=== PATIENT | female | born 1970 | race Caucasian/White ===

== ENCOUNTER 2021-02-06 07:59 | Day surgery (SDC) | payer MEDICAID, SELFPAY ==
[~2021-02-06] VITALS: Ht 154.9 cm; Wt 113.4 kg
[2021-02-06] MEDS ORDERED: SIMETHICONE 40 MG/0.6 ML ML ONE (10:07)
[2021-02-06] MEDS ORDERED: MEPERIDINE 100 MG INJ. 100 MG/ML VIAL ONE (10:07)
[2021-02-06] MEDS ORDERED: MIDAZOLAM HCL 5 MG/5 ML VIAL ONE (10:08)
[2021-02-06 13:18] VITALS: BP_SYST 128
== END 2021-02-06 11:30 | disposition home or self-care (01) ==
LOC: SDS 07:59 → SMU 08:00 → SDS 11:30
PROVIDERS: ATTEND Internal Medicine Gastroenterology
DX: R19.5 Other fecal abnormalities (principal); K62.5 Hemorrhage of anus and rectum; K64.8 Other hemorrhoids; I10 Essential (primary) hypertension; E78.00 Pure hypercholesterolemia, unspecified; Z79.899 Other long term (current) drug therapy; Z20.822 Contact with and (suspected) exposure to COVID-19
CPT/HCPCS: 45378; 99152; G0378; J2175; J2250; U0003